=== PATIENT | female | born 1985 | race Caucasian/White ===

== ENCOUNTER → 2017-04-28 | Outpatient (CLI) | payer OTHER | END | disposition home or self-care (01) | LOC: LAB 10:47 | DX: N92.6 Irregular menstruation, unspecified (principal); R10.2 Pelvic and perineal pain | CPT/HCPCS: 36415; 84702 ==

== ENCOUNTER 2018-06-03 11:46 | Emergency (ER) | payer OTHER ==
[~2018-06-03] VITALS: Ht 160 cm; Wt 63.5 kg
[~2018-06-03 11:46] MED LIST: HYDR-3164 PO; NAPR500T8 PO
[2018-06-03 11:54] VITALS: BP 126/82
--- NOTE | 2018-06-03 12:23 | PHYS DOC ---
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 Patient rates the pain a 6 out of 10. Patient states that she was given Tylenol at work at 0700. (RONI HEREDIA APRN) Review of Systems Review of Systems Constitutional: Denies fever or chills [] Eyes: Denies change in visual acuity, redness, or eye pain [] HENT: Denies nasal congestion or sore throat [] Respiratory: Denies cough or shortness of breath [] Cardiovascular: No additional information not addressed in HPI [] GI: Denies abdominal pain, nausea, vomiting, bloody stools or diarrhea [] : Denies dysuria or hematuria [] Musculoskeletal: Denies back pain or left wrist joint pain [] Integument: Denies rash or skin lesions [] Neurologic: Denies headache, focal weakness or sensory changes [] All other systems were reviewed and found to be within normal limits, except as documented in this note. (RONI HEREDIA APRN) Current Medications Current Medications Current Medications Medications (Trade) Dose Ordered Sig/Stefano Start Time Stop Time Status Last Admin Dose Admin Ibuprofen (Motrin) 600 mg 1X ONCE 06/03/18 12:30 06/03/18 12:31 DC 06/03/18 12:49 600 MG (TOR MCKEON MD) Allergies Allergies Allergies Coded Allergies Type Severity Reaction Last Updated Verified No Known Drug Allergies 07/27/15 No (TOR MCKEON MD) Physical Exam Physical Exam Constitutional: Well developed, well nourished, no acute distress, non-toxic appearance. [] HENT: Normocephalic, atraumatic, bilateral external ears normal, oropharynx moist, no oral exudates, nose normal. [] Eyes: PERRLA, EOMI, conjunctiva normal, no discharge. [] Neck: Normal range of motion, no tenderness, supple, no stridor. [] Cardiovascular:Heart rate regular rhythm, no murmur [] Lungs & Thorax: Bilateral breath sounds clear to auscultation [] Abdomen: Bowel sounds normal, soft, no tenderness, no masses, no pulsatile masses. [] Skin: Warm, dry, no erythema, no rash. [] Back: No tenderness, no CVA tenderness. [] Extremities: Dorsal and radial side of wrist tenderness, no cyanosis, no clubbing, ROM intact, left wrist 1+ edema. [] Neurologic: Alert and oriented X 3, normal motor function, normal sensory function, no focal deficits noted. [] Psychologic: Affect normal, judgement normal, mood normal. [] (RONI HEREDIA APRN) Current Patient Data Vital Signs Vital Signs Date Time Temp Pulse Resp B/P (MAP) Pulse Ox O2 Delivery O2 Flow Rate FiO2 06/03/18 11:54 97.4 79 16 126/82 (97) 100 Room Air 97.4 (TOR MCKEON MD) EKG EKG [] (RONI HEREDIA APRN) Radiology/Procedures Radiology/Procedures [] (RONI HEREDIA APRN) Impressions: [facility] [address] [place], [place] [id number] IMAGING REPORT Signed PATIENT: GRANT PERRY ACCOUNT: [id number] : 1985 LOCATION: ER AGE: 32 SEX: F EXAM STATUS: REG ER ORD. PHYSICIAN: RONI HEREDIA APRN REASON: injury PROCEDURE: WRIST 3V LEFT EXAM: Right wrist, 3 views. HISTORY: Sprained wrist. COMPARISON: None. FINDINGS: 3 views of the right wrist are obtained. There is no fracture, dislocation or subluxation. IMPRESSION: No acute osseous finding. 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 Patient rates the pain a 6 out of 10. Patient states that she was given Tylenol at work at 0700. Patient has tenderness with palpation to the dorsal wrist and radial side of the wrist. Patient does have intact range of motion although it is painful. She can wiggle her fingers. Radial pulses present and strong. Less than 3 second cap refill. There is 1+ swelling to the wrist. Skin pink warm and dry. Patient is alert and oriented and ambulatory with a steady gait. Patient speaks in full clear sentences. There is no obvious deformity, bruising, abrasions or lacerations to the affected limb. Left wrist x-ray shows no acute findings. Patient to follow-up with her primary care provider. Patient has received ibuprofen Jagdish bandage in the ED. Patient is diagnosed with a Left wrist sprain. (RONI HEREDIA APRN) Course & Med Decision Making Staff Physician Addendum: I was working in the ER during the course of this patient's visit. I was available for consultation as needed, but I was not directly involved in the care of this patient. (TOR MCKEON MD) Dragon Disclaimer Dragon Disclaimer This electronic medical record was generated, in whole or in part, using a voice recognition dictation system. (RONI HEREDIA APRN) Departure Departure Impression: Primary Impression: Left wrist sprain Disposition: 01 HOME, SELF-CARE Condition: STABLE Referrals: UNKNOWN PCP NAME (PCP) Patient Instructions: Wrist Sprain with [facility] Additional Instructions: Follow-up with primary care provider. Take ibuprofen try using ice for pain. Scripts Ibuprofen (IBUPROFEN) 600 Mg Tablet 600 MG PO PRN Q6HRS PRN for INFLAMMATION, #15 TAB Prov: RONI HEREDIA APRN 06/03/18 Problem Qualifiers Primary Impression: Left wrist sprain Encounter type: initial encounter Qualified Codes: S63.502A - Unspecified sprain of left wrist, initial encounter RONI HEREDIA APRN Jun 03, 2018 12:23 TOR MCKEON MD Jun 04, 2018 07:07
[2018-06-03] MEDS ORDERED: IBUPROFEN 200 MG TABLET. PO ONE (12:30)
--- NOTE | 2018-06-03 12:41 | RAD ---
EXAM: Right wrist, 3 views. HISTORY: Sprained wrist. COMPARISON: None. FINDINGS: 3 views of the right wrist are obtained. There is no fracture, dislocation or subluxation. IMPRESSION: No acute osseous finding. Electronically signed by: Diamond Farrar MD (06/03/2018 12:38 PM) [id number]
[2018-06-03] MEDS ORDERED: IBUP-1007 PO (12:47)
== END 2018-06-03 12:54 | disposition home or self-care (01) ==
LOC: ER 11:46
DX: S63.502A Unspecified sprain of left wrist, initial encounter (principal); X50.0XXA Overexertion from strenuous movement or load, initial encounter; Y93.89 Activity, other specified; Y92.238 Other place in hospital as the place of occurrence of the external cause; Y99.0 Civilian activity done for income or pay
CPT/HCPCS: 73110; 99283

== ENCOUNTER → 2018-07-04 | Outpatient (CLI) | payer OTHER ==
[~2018-07-04] MED LIST changes: +IBUP-1007 PO
--- NOTE | 2018-07-04 10:21 | RAD ---
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 The patient felt a pop at that time. No surgical history. TECHNIQUE: Noncontrast MRI sequences of the left wrist were performed in all 3 planes. COMPARISON: Left wrist radiographic study dated June 03, 2018. FINDINGS: No bone contusion or fracture or marrow infiltrative process is seen. No avascular necrosis is evident. There is mild degenerative spurring of the first carpal metacarpal joint and the radial scaphoid joint and the triquetrum pisiform joint. Mild degenerative sclerosis or small bone islands of the carpal bones are seen. No erosive arthropathy is evident. The scaphoid lunate ligament and the lunate triquetrum ligament are intact. The triangular fibrocartilage complex is intact. No significant joint effusion is seen. The gczepw-xxhytu-khaljcii axis is normal. There is a dorsal periarticular ganglion cyst measuring 7 mm in greatest dimension just posterior to the scaphoid lunate joint compartment. It is deep to the extensor tendons. Extensor tendons are intact without tenosynovitis. There is mild extensor carpi ulnar is tendinosis. The flexor tendons are intact without tenosynovitis. The carpal tunnel and median nerve unremarkable. IMPRESSION: Mild primary degenerative osteoarthritis. Small periarticular dorsal ganglion cyst. Chronic tendinosis of the extensor carpi ulnaris tendon without high-grade partial tear or tenosynovitis. Electronically signed by: Juno Wyman MD (07/04/2018 10:18 AM) [id number]
== END | disposition home or self-care (01) ==
LOC: MRI 08:11
PROVIDERS: ATTEND Orthopaedic Surgery
DX: S63.502A Unspecified sprain of left wrist, initial encounter (principal); M19.032 Primary osteoarthritis, left wrist; M67.432 Ganglion, left wrist; X58.XXXA Exposure to other specified factors, initial encounter; Y93.89 Activity, other specified; Y92.89 Other specified places as the place of occurrence of the external cause; Y99.8 Other external cause status
CPT/HCPCS: 73221

== ENCOUNTER 2019-12-24 12:50 | Emergency (ER) | payer OTHER ==
[~2019-12-24] VITALS: Ht 160 cm; Wt 68.0 kg
--- NOTE | 2019-12-24 13:59 | RAD ---
EXAMINATION: CHEST AP ONLY CLINICAL HISTORY: Reason: cough, covid? / Spl. Instructions: / History: EXAM DATE/TIME: 12/24/2019 1:01 PM COMPARISON: None FINDINGS: Lines, Tubes, and Devices: None. Cardiomediastinal Silhouette: Within normal limits. Lungs and Pleura: No evidence of focal airspace consolidation or pleural effusion. Pulmonary vasculature unremarkable. Bones and Soft Tissues: No acute osseous abnormality. IMPRESSION: No evidence of acute cardiopulmonary abnormality. Electronically signed by: Gen Neumann DO (12/24/2019 1:56 PM) [id number]
[2019-12-24 14:00] LABS: BASO % 0 % (0-3); EOS # 0.2 x10^3/uL (0.0-0.7); EOS % 3 % (0-3); HEMATOCRIT 29.9 % (36.0-47.0); HEMOGLOBIN 9.8 g/dL (12.0-15.5); LYMPH # 1.5 x10^3/uL (1.0-4.8); LYMPH % 25 % (24-48); MEAN CORPUSCULAR HEMOGLOBIN 24 pg (25-35); MEAN CORPUSCULAR HGB CONC 33 g/dL (31-37); MEAN CORPUSCULAR VOLUME 74 fL (79-100); MONO # 0.7 x10^3/uL (0.0-1.1); MONO % 11 % (0-9); NEUT # 3.8 x10^3/uL (1.8-7.7); NEUT % 61 % (31-73); PLATELET COUNT 236 x10^3/uL (140-400); RED BLOOD COUNT 4.02 x10^6/uL (3.50-5.40); RED CELL DISTRIBUTION WIDTH 16.8 % (11.5-14.5); WHITE BLOOD COUNT 6.1 x10^3/uL (4.0-11.0)
[2019-12-24 14:28] LABS: C-REACTIVE PROTEIN 2.8 mg/L (0-3.3); CALCIUM 8.8 mg/dL (8.5-10.1); CREATININE 0.9 mg/dL (0.6-1.0); GFR 71.3; POTASSIUM 3.8 mmol/L (3.5-5.1); TOTAL BILIRUBIN 0.2 mg/dL (0.2-1.0); TOTAL PROTEIN 8.2 g/dL (6.4-8.2)
[2019-12-24] MEDS ORDERED: IOHEXOL 350 MG/ML 100 ML VIAL. IV ONE (16:00)
[2019-12-24] MEDS ORDERED: CONTRAST GIVEN. MC PRN (16:00)
--- NOTE | 2019-12-24 16:50 | RAD ---
Study: CT CHEST WITH CONTRAST - PULMONARY ANGIOGRAM History: Pain, shortness of breath, elevated d-dimer Comparison: Chest radiograph same day Technique: Helical CT of the chest performed after the administration of 90 mL Omnipaque 350 mL intravenous contrast and timed for angiographic evaluation of the pulmonary arteries per PE protocol. Coronal and sagittal 3D MIP reformations were obtained. One or more of the following individualized dose reduction techniques were utilized for this examination: 1. Automated exposure control 2. Adjustment of the mA and/or kV according to patient size 3. Use of iterative reconstruction technique. Findings: Pulmonary Arteries: Contrast bolus is adequate. There is a possible filling defect in a subsegmental pulmonary artery in the lingula (image 91, series 3), however this may be artifact as there is also motion in this region and a similar filling defect is seen in the adjacent vein. Otherwise, no acute pulmonary embolism. Heart/Systemic Vasculature: The heart is normal in size. No pericardial effusion. Thoracic aorta is normal in caliber. Great vessel origins are patent. Mediastinum: No lymphadenopathy. Lungs: The lungs are clear. There is mild airway wall thickening. No pleural effusion. Neck/Axilla/Body Wall: Thyroid gland is normal. No supraclavicular or axillary lymphadenopathy. Breast tissue is symmetric. Upper Abdomen: Unremarkable. Bones: No acute osseous abnormality. IMPRESSION: Possible filling defect in a subsegmental pulmonary artery in the lingula. This may be artifact given the presence of motion and similar appearance of the adjacent pulmonary vein, however a small pulmonary embolism is not excluded. No other evidence of acute pulmonary embolism. Electronically signed by: Shania Barrow MD (12/24/2019 4:47 PM) [id number]
[2019-12-24] MEDS ORDERED: METH4TAB2 PO (16:57)
[2019-12-24] MEDS ORDERED: BENZ100C PO (16:57)
--- NOTE | 2019-12-24 16:57 | PHYS DOC ---
Past Medical History Past Medical History: Anemia Past Surgical History: No Surgical History Smoking Status: Never Smoker Alcohol Use: Occasionally Drug Use: None General Adult EDM: Chief Complaint: SHORTNESS OF BREATH HPI: HPI: Patient is a 34-year-old female who works at [employer] who presents to the emergency room complaining of URI symptoms. She developed a cough, shortness of breath, body aches, fever earlier today. She had a rapid test that was negative for coronavirus. She continues to feel worn down. She does not take anything for her symptoms. Review of Systems: Review of Systems: General: Denies sweats. Reports fever, chills, fatigue Eyes: Denies drainage, blurred vision, eye redness HENT: Reports rhinorrhea, sore throat Respiratory: Denies wheezing reports cough, shortness of breath Cardiac: Denies edema, palpitations, chest pain GI: Denies abdominal pain, Nausea, vomiting MSK: Denies back pain, neck pain Skin: Denies rash, jaundice Neuro: Denies dizziness. Reports headache Psychiatric: Denies SI/HI Heart Score: Risk Factors: Risk Factors: DM, Current or recent (<one month) smoker, HTN, HLP, family history of CAD, obesity. Risk Scores: Score 0 - 3: 2.5% MACE over next 6 weeks - Discharge Home Score 4 - 6: 20.3% MACE over next 6 weeks - Admit for Clinical Observation Score 7 - 10: 72.7% MACE over next 6 weeks - Early Invasive Strategies Current Medications: Current Medications Medications (Trade) Dose Ordered Sig/Stefano Start Time Stop Time Status Last Admin Dose Admin Info (CONTRAST GIVEN -- Rx MONITORING) 1 each PRN DAILY PRN 12/24/19 16:00 12/26/19 15:59 Iohexol (Omnipaque 350 Mg/ml) 90 ml 1X ONCE 12/24/19 16:00 12/24/19 16:01 DC Allergies: Allergies: Allergies Coded Allergies Type Severity Reaction Last Updated Verified No Known Drug Allergies 07/27/15 No Physical Exam: PE: General: Awake, alert, NAD. Well Nourished, well hydrated. Cooperative HEENT: Atraumatic, EOMI, PERRL, airway patent, moist oral mucosa Neck: Supple, trachea midline Respiratory: CTA bilaterally, normal effort, no wheezing/crackles CV: RRR, no murmur, cap refill <2 GI: Soft, nondistended, nontender, no masses MSK: No obvious deformities Skin: Warm, dry, intact Neuro: A&O x3, speech NL, sensory and motor grossly intact, no focal deficits Psych: Normal affect, normal mood, not suicidal or homicidal Current Patient Data: Labs: Laboratory Tests Test 12/24/19 13:34 12/24/19 13:35 POC Urine HCG, Qualitative Hcg negative (Negative) White Blood Count 6.1 x10^3/uL (4.0-11.0) Red Blood Count 4.02 x10^6/uL (3.50-5.40) Hemoglobin 9.8 g/dL (12.0-15.5) L Hematocrit 29.9 % (36.0-47.0) L Mean Corpuscular Volume 74 fL (79-100) L Mean Corpuscular Hemoglobin 24 pg (25-35) L Mean Corpuscular Hemoglobin Concent 33 g/dL (31-37) Red Cell Distribution Width 16.8 % (11.5-14.5) H Platelet Count 236 x10^3/uL (140-400) Neutrophils (%) (Auto) 61 % (31-73) Lymphocytes (%) (Auto) 25 % (24-48) Monocytes (%) (Auto) 11 % (0-9) H Eosinophils (%) (Auto) 3 % (0-3) Basophils (%) (Auto) 0 % (0-3) Neutrophils # (Auto) 3.8 x10^3/uL (1.8-7.7) Lymphocytes # (Auto) 1.5 x10^3/uL (1.0-4.8) Monocytes # (Auto) 0.7 x10^3/uL (0.0-1.1) Eosinophils # (Auto) 0.2 x10^3/uL (0.0-0.7) Basophils # (Auto) 0.0 x10^3/uL (0.0-0.2) D-Dimer (Sheryl) 0.85 ug/mlFEU (0.00-0.50) H Sodium Level 137 mmol/L (136-145) Potassium Level 3.8 mmol/L (3.5-5.1) Chloride Level 105 mmol/L (98-107) Carbon Dioxide Level 27 mmol/L (21-32) Anion Gap 5 (6-14) L Blood Urea Nitrogen 23 mg/dL (7-20) H Creatinine 0.9 mg/dL (0.6-1.0) Estimated GFR (Cockcroft-Gault) 71.3 BUN/Creatinine Ratio 26 (6-20) H Glucose Level 88 mg/dL (70-99) Calcium Level 8.8 mg/dL (8.5-10.1) Total Bilirubin 0.2 mg/dL (0.2-1.0) Aspartate Amino Transferase (AST) 15 U/L (15-37) Alanine Aminotransferase (ALT) 28 U/L (14-59) Alkaline Phosphatase 63 U/L (46-116) Lactate Dehydrogenase 238 U/L (81-234) H Creatine Kinase 160 U/L (26-192) Troponin I Quantitative < 0.017 ng/mL (0.000-0.055) C-Reactive Protein, Quantitative 2.8 mg/L (0-3.3) FV-Dxa-S-Type Natriuretic Peptide 20 pg/mL (0-124) Total Protein 8.2 g/dL (6.4-8.2) Albumin 4.0 g/dL (3.4-5.0) Albumin/Globulin Ratio 1.0 (1.0-1.7) Laboratory Tests 12/24/19 13:35 Laboratory Tests 12/24/19 13:35 Vital Signs: Vital Signs Date Time Temp Pulse Resp B/P (MAP) Pulse Ox O2 Delivery O2 Flow Rate FiO2 12/24/19 13:15 98.8 80 18 123/82 (96) 99 Room Air 98.8 EKG: EKG: [] Radiology/Procedures: Radiology/Procedures: [] Course & Med Decision Making: Course & Med Decision Making Pertinent Labs and Imaging studies reviewed. (See chart for details) Patient is a 34-year-old female who presents to the emergency room with cough, body aches, shortness of breath. At this time there is concern for the novel coronavirus 19. Risk stratifying work-up was ordered including chest x-ray, d- dimer, CPK, CRP, LDH, troponin, ferritin, CBC, CMP. Due to concern of COVID-19 I have discussed the importance of quarantining with the patient. I have discussed with them that they should avoid grocery stores, gas stations, pharmacies, work, friends/family's homes. I discussed with him that it is important that they do not expose themselves to anyone else for the next 14 days. Chest x-ray does not show infiltrates at this time and patient will not be treated with empiric antibiotics. I have discussed with the patient the course of the illness and we have discussed strict return precautions. At this time patient does not need admission as they are stable, however it is possible that they may get worse over the next few days and we have discussed the importance of coming back if they develop severe shortness of breath or any other symptoms that they are concerned about. Patient's test results and vitals while in the ED were fully reviewed and discussed with the patient. Patient is stable and at this time does not need admission to the hospital. We have discussed strict return precautions and the importance of following up with their Primary Care Physician. Patient stated understanding and was given an opportunity to ask any questions. Dragon Disclaimer: Dragon Disclaimer: This electronic medical record was generated, in whole or in part, using a voice recognition dictation system. Departure Departure Impression: Primary Impression: Suspected 2019 novel coronavirus infection Disposition: HOME, SELF-CARE Condition: STABLE Referrals: YELITZA QUINN MD (PCP) Patient Instructions: Shortness of Breath Additional Instructions: Thank you for visiting [facility]. We appreciate you trusting us with your care. If any additional problems come up please don't hesitate to return to visit us. Follow up with your primary care provider so they can plan additional care if needed and know about the problem that you had today. If symptoms worsen come back to the Emergency Department. Any concerning symptoms that start such as chest pain, shortness of air, weakness or numbness on one side of the body, running high fevers or any other concerning symptoms return to the ER. You have a viral syndrome which may include symptoms like muscle aches, fevers, chills, runny nose, cough, sneezing, sore throat, nausea, vomiting, or diarrhea. One of the potential viruses that you may have is SARS-CoV-2, the virus that causes COVID-19, also known as the Coronavirus. You are just as likely to have a different viral infection such as the common cold, flu, etc. Most patients with the Coronavirus have mild symptoms and recover on their own. Resting, staying hydrated, and sleep based on known cases can be helpful. As of todays visit, you are well enough to go home and treat your symptoms with oral fluids and over the counter medications. Coronavirus testing is not performed on most people with mild symptoms who are being discharged from the emergency department. If Coronavirus testing was performed today the results will not be available for possibly up to 3-4 days. If your result is positive you will be contacted. Please follow the following precautions at home: 1. Stay home except to get medical care. 2. As advised by the CDC, we recommend that you stay in your home and minimize contact with other people. We do not want you to spread the infection. 3. Those who are older or have significant medical issues may have more severe symptoms from this infection. We recommend self-isolation FOR AT LEAST 7 DAYS after your 1st day of symptoms. AFTER you feel better please wait AT LEAST ANOTHER WEEK before returning to regular activities and being around other people. 4. IF you become sicker and have difficulty breathing, chest pain, are unable to eat/drink, severe vomiting, diarrhea, or weakness you may need to return to the Emergency Department. 5. You should restrict activities outside of your home, except for getting medical care. DO NOT go to work, school, or public areas. Avoid using public transportation, ride sharing, or taxis. 6. Separate yourself from other people in your home. You should use a separate bathroom if possible. 7. Avoid sharing personal household items such as dishes, cups, eating utensils, towels, etc. 8. Clean all high touch surfaces every day (door knobs, counter tops, etc). Use a household cleaning spray or wipe per label instructions. 9. Clean your hands often. Wash your hands with soap and water for at least 20 seconds. 10. Cover your mouth and nose when you cough or sneeze. 11. Throw used tissues in the trash and immediately wash your hands. For additional resources please visit the CDC website or the [facility] ([phone]), you may also call 211 for further information. Scripts Benzonatate (TESSALON PERLE) 100 Mg Capsule 1 CAP PO TID for cough, #21 CAP Prov: PIERRE RUFF MD 12/24/19 Methylprednisolone (MEDROL) 4 Mg Tab.ds.pk 1 PKG PO UD for inflammation, #1 PKG Prov: PIERRE RUFF MD 12/24/19 PIERRE RUFF MD Dec 24, 2019 16:57
[2019-12-24 17:20] VITALS: BP 122/77
--- NOTE | 2019-12-25 12:55 | EKG ---
[facility] [address] [place] [id number] Test Date: 2019-12-24 Test Time: 13:32:26 Pat Name: GRANT PERRY Department: Room: Gender: F Sales Support Associate: : 1985 Requested By: PIERRE RUFF Order Number: [id number] Reading MD: Measurements Intervals [place] Rate: 76 P: 27 WV: 150 QRS: 38 QRSD: 76 T: 21 QT: 388 QTc: 436 Interpretive Statements SINUS RHYTHM NORMAL ECG RI6.02 No previous ECG available for comparison
--- NOTE | 2019-12-26 12:57 | NUR ---
IP: Attempted to gulshan pt her COVID results, No answer. Left a voicemail to return the call. Addendum: 12/26/19 at 1300 by ARMANDO GUERRA RN IP: Pt returned the call. Informed her of her negative COVID results. Pt verbalized understanding.
== END 2019-12-24 17:42 | disposition home or self-care (01) ==
LOC: ER 12:50
DX: R50.9 Fever, unspecified (principal); Z20.828 Contact with and (suspected) exposure to other viral communicable diseases; R06.02 Shortness of breath; R05 Cough
CPT/HCPCS: 36415; 71045; 71275; 80053; 81025; 82550; 83615; 83880; 84484; 85025; 85379; 86140; 93005; 99285; Q9967; U0003